=== PATIENT | female | born 1940 ===

== ENCOUNTER 2016-11-20 12:22 | Emergency (ER) | payer MEDICARE, MEDICAID ==
[2016-11-20 12:27] VITALS: RESP 20
--- NOTE | 2016-11-20 13:34 | C.PDOC ---
History Of Present Illness Patient is a 76 year old female who presents to the ER with a complaint of left knee pain for more than 1 week. Patient states she took tylenol with some relief to pain. Patient reports she has a Hx of osteoarthritis, right knee replacement, and left hip replacement. Denies recent fall, numbness, or weakness. Chief Complaint (Nursing): Lower Extremity Problem/Injury History Per: Patient History/Exam Limitations: no limitations Onset/Duration Of Symptoms: Days (>1 week) Current Symptoms Are (Timing): Still Present Recent travel outside of the [place]: No - Knee Description Of Injury: denies: Fell, Struck With Object, Struck Against Object, Twisted, Laceration Alleviating Factor(s): OTC Pain Medication (Tylenol) Past Medical History Reviewed: Historical Data, Nursing Documentation, Vital Signs Vital Signs: Last Vital Signs Temp 97.8 F 11/20/16 14:33 Pulse 54 L 11/20/16 14:33 Resp 20 11/20/16 14:33 BP 151/75 H 11/20/16 14:33 Pulse Ox 96 11/20/16 14:33 - Medical History PMH: Arthritis, Asthma, HTN Other Surgeries: Right knee replacement. Left hip replacement. Family History: States: Unknown Family Hx - Social History Hx Alcohol Use: No Hx Substance Use: No - Immunization History Hx Tetanus Toxoid Vaccination: No Hx Influenza Vaccination: No Hx Pneumococcal Vaccination: No Review Of Systems Musculoskeletal: Positive for: Leg Pain (Left knee) Neurological: Negative for: Weakness, Numbness Physical Exam - Physical Exam Appears: Non-toxic, No Acute Distress Skin: Normal Color, Warm, Dry Head: Atraumatic, Normacephalic Oral Mucosa: Moist Gastrointestinal/Abdominal: Soft, No Tenderness Back: Normal Inspection, No CVA Tenderness, No Vertebral Tenderness, No Paraspinal Tenderness Extremity: Normal ROM (Left knee), Other (+ crepitus with motion) Neurological/Psych: Oriented x3, Normal Speech, Normal Cognition ED Course And Treatment O2 Sat by Pulse Oximetry: 98 (Room air) Pulse Ox Interpretation: Normal Progress Note: Left knee x-ray ordered. Disposition - [facility] - Disposition: HOME/ ROUTINE Disposition Time: 14:00 Condition: GOOD Additional Instructions: Thank you for letting us take care of you today. Your provider was Dr. Waldrop. You were treated for arthritis. The emergency medical care you received today was directed at your acute symptoms. If you were prescribed any medication, please fill it and take as directed. It may take several days for your symptoms to resolve. Return to the Emergency Department if your symptoms worsen, do not improve, or if you have any other problems. Please contact your doctor or call one of the physicians/clinics you have been referred to that are listed on the Patient Visit Information form that is included in your discharge packet. Bring any paperwork you were given at discharge with you along with any medications you are taking to your follow up visit. Our treatment cannot replace ongoing medical care by a primary care provider (PCP) outside of the emergency department. Thank you for allowing the [facility] team to be part of your care today. Follow up with your doctor in 3-4 days for re-evaluation. Prescriptions: Cyclobenzaprine [Cyclobenzaprine HCl] 5 mg PO Q8 PRN #20 tab PRN Reason: Muscle Spasm Instructions: Arthritis (ED) Forms: Gen Discharge Inst Mongolian Print Language: TRINIDADIAN - Clinical Impression Clinical Impression: Arthritis - Scribe Statement The provider has reviewed the documentation as recorded by the Scribe Nicko Thompson All medical record entries made by the Asadibjason were at my direction and personally dictated by me. I have reviewed the chart and agree that the record accurately reflects my personal performance of the history, physical exam, medical decision making, and the department course for this patient. I have also personally directed, reviewed, and agree with the discharge instructions and disposition.
[2016-11-20 14:37] VITALS: BP 151/75; PULSE 54; TEMP 97.8
--- NOTE | 2016-11-20 14:47 | RAD ---
PROCEDURE: Left Knee Radiographs. HISTORY: Pain. COMPARISON: None. FINDINGS: BONES: Normal. No fracture. JOINTS: Tricompartmental osteoarthritis. Most pronounced in the patellofemoral compartment. JOINT EFFUSION: Minimal OTHER FINDINGS: None. IMPRESSION: No fracture. Tricompartmental osteoarthritis, most prominent in the patellofemoral compartment. Minimal joint effusion.
[2016-11-20 18:51] VITALS: O2SAT 98
== END 2016-11-20 14:37 | disposition home or self-care (01) ==
LOC: C.ER 12:22
DX: M17.12 Unilateral primary osteoarthritis, left knee (principal); I10 Essential (primary) hypertension